=== PATIENT | male | born 1940 | race African-American/Black ===

== ENCOUNTER 2024-02-29 19:34 | Emergency (ER) | payer SELFPAY ==
[2024-02-29] VITALS (7 sets, daily range): BP systolic 138–159; BP diastolic 112–127; PULSE 106–118; RESP 17–39; O2SAT 93–100
--- NOTE | ~2024-02-29 | XR_ITS ---
EXAMINATION: XR chest 1V portable DATE: 02/29/2024 20:05 INDICATION: Shortness of breath. TECHNIQUE: A single frontal view of the chest was obtained on 2 radiographs. COMPARISON: None. FINDINGS: There is a diffuse interstitial pattern, consistent with mild pulmonary edema. No pleural e ffusion or pneumothorax. Cardiomegaly is noted. There is a prominent right pericardial fat pad. IMPRESSION: 1. Mild pulmonary edema. 2. Cardiomegaly. Reviewed, dictated and finalized at location E.
--- NOTE | ~2024-02-29 | CT_ITS ---
EXAMINATION: CTA chest PE protocol DATE: 02/29/2024 21:24 INDICATION: Shortness of breath. TECHNIQUE: Computed tomography angiography (CTA) of the chest was performed with 100 mL Omnipaque-350 intravenous contrast timed to evaluate the pulmonary arteries. Coronal maximum intensity projection 3D-reconstructions were created by the technologist. Automated exposure control and iterative reconst ruction technique were employed. The dose-length product was 242.10 mGy-cm. COMPARISON: Chest single view 02/29/2024 FINDINGS: There is mild emphysema. There is septal thickening in the lungs, consistent with mild pulm onary edema. There is mild atelectasis bilaterally. No pleural effusion. Cardiomegaly is noted. 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 There is no pulmonary embolus. There is mild thoraci c spondylosis. There is a chronic compression fracture of T4. IMPRESSION: 1. No pulmonary embolus. 2. Mild pulmonary edema. 3. Mild emphysema. 4. Cardiomegaly. Reviewed, dictated and finalized at location E.
--- NOTE | 2024-02-29 19:38 | ECG_ITS ---
Test Date: 2024-02-29 19:41:08 Measurements Intervals [place] Rate: 115 P: 0 GA: 0 QRS: -72 QRSD: 132 T: 104 QT: 360 QTc: 499 Interpretive Statements SINUS TACHYCARDIA ATRIAL AND VENTRICULAR PREMATURE COMPLEXES INTRAVENTRICULAR CONDUCTION DELAY DELAYED PRECORDIAL R/S TRANSITION LEFT VENTRICULAR HYPERTROPHY WITH ST-T CHANGE ABNORMAL ECG No previous ECG available for comparison Electronically Signed On 03-01-2024 07:10:13 CDT by Jae Dawson D.O.
--- NOTE | 2024-02-29 19:39 | ED.GENADULT ---
HPI - General Adult General Chief complaint: Shortness of Breath/Dyspnea Stated complaint: sob x 1-2 History of Present Illness HPI narrative: 83-year-old male present to the emergency department from home for evaluation of worsening shortness of breath. Patient has had worsening shortness breath over the last 2-3 days. Per EMS patient and daughter were poor historians. Patient is currently living with the daughter. Patient is post be wearing a LifeVest but patient is unaware of where this is at. Patient's primary complaint is shortness of breath. Patient had a stable pulse ox on arrival emergency department patient denies any complaints. Related Data Allergies Allergy/AdvReac Type Severity Reaction Status Date / Time No Known Allergies Allergy Verified 02/29/24 19:49 Review of Systems Review of Systems: All systems reviewed & are unremarkable except as noted in HPI and below Exam Narrative: APPEARANCE: Well appearing, no pain, no distress, well-nourished. HEAD: normocephalic, atraumatic. EYES: PERRLA/EOMI, conjunctivae clear. NOSE: Normal no drainage EARS:TMS clear with good light reflex. THROAT: Pharynx clear, no exudate. NECK: Supple. No adenopathy, no masses. RESPIRATORY: Airway patent, respirations nonlabored. Clear to auscultation bilaterally, no rales, rhonchi, wheezing. CARDIOVASCULAR: Regular rate and rhythm without murmurs rubs or gallops. ABDOMINAL: Soft, nontender, nondistended, normal bowel sounds MUSCULOSKELETAL: No lower extremity edema NEURO: Alert. Cranial nerves II through XII intact. Good gait. Good coordination SKIN: Warm, dry. Normal Color PSYCHIATRIC: Normal affect/mood. Course Course Emergency Course: Patient denies any shortness of breath and patient was improved with treatment. Vital Signs Vital signs: Vital Signs Pulse Rate 114 H 02/29/24 19:32 Respiratory Rate 37 H 02/29/24 19:32 Blood Pressure 159/120 H 02/29/24 19:32 Pulse Oximetry 95 02/29/24 19:32 Pulse Rate 109 H 02/29/24 22:27 Respiratory Rate 23 H 02/29/24 22:27 Blood Pressure 148/124 H 02/29/24 22:27 Pulse Oximetry 97 02/29/24 22:27 Oxygen Delivery Room Air 02/29/24 19:41 Medical Decision Making MDM Narrative Medical decision making narrative: 83-year-old male present to the emergency department for evaluation of shortness of breath. Patient states he does not feel short of breath at this time. Patient was able to ambulate in the emergency department with a stable pulse ox. Patient is afebrile with no leukocytosis and a stable hemoglobin of 11.9. Patient's D-dimer was elevated at 1.27 but CTA showed no evidence of pulmonary embolism. Patient's BNP was elevated the patient has no lower extremity edema and patient has no significant pulmonary edema. Patient was negative for influenza RSV and for COVID. Patient reports he does feel improved and patient denies any complaint at time of discharge. Patient was encouraged of close follow-up with his primary care physicians. Patient was treated with a dose of IV Lasix prior to discharge Differential Diagnosis Differential Diagnosis: Pneumonia, COPD, CHF Vital Signs Vital Signs: Vital Signs Pulse Rate 114 H 02/29/24 19:32 Respiratory Rate 37 H 02/29/24 19:32 Blood Pressure 159/120 H 02/29/24 19:32 Pulse Oximetry 95 02/29/24 19:32 Pulse Rate 109 H 02/29/24 22:27 Respiratory Rate 23 H 02/29/24 22:27 Blood Pressure 148/124 H 02/29/24 22:27 Pulse Oximetry 97 02/29/24 22:27 Oxygen Delivery Room Air 02/29/24 19:41 Lab Data 02/29/24 19:54 02/29/24 20:39 Labs: Lab Results 02/29/24 02/29/24 Range/Units 19:54 20:39 WBC 6.7 (4.5-10.0) K/mm3 RBC 4.16 L (4.6-6.20) M/mm3 Hgb 11.9 L (14.0-18.0) g/dL Hct 34.7 L (42.0-52.0) % MCV 83.4 (80-100) fl MCH 28.6 (26-34) pg MCHC 34.3 (32-36) g/dl RDW 19.9 H (11.5-14.5) % Plt Count 197 (150-375) k/m
[2024-02-29] MEDS: SODIUM CHLORIDE 0.9% IV 500 ML 999 ML IV CONT (19:49)
[2024-02-29 20:10] LABS: Basophils Absolute Auto 0.1 K/mm3 (0.0-0.1); Basophils Percent Auto 0.7 % (0.2-1.2); Eosinophils Absolute Auto 0.1 K/mm3 (0-0.3); Eosinophils Percent Auto 1.9 % (0-4.4); Hematocrit 34.7 % (42.0-52.0); Hemoglobin 11.9 g/dL (14.0-18.0); Immature Granulocyte Absolute 0.05 K/mm3 (0.00-0.031); Immature Granulocyte Percent A 0.7 % (0-0.5); Lymphocytes Absolute Auto 1.44 K/mm3 (0.9-3.2); Lymphocytes Percent Auto 21.5 % (18.3-44.2); Mean Corpuscular HGB Conc 34.3 g/dl (32-36); Mean Corpuscular Hemoglobin 28.6 pg (26-34); Mean Corpuscular Volume 83.4 fl (80-100); Mean Platelet Volume 10.9 fl (7.4-10.4); Monocytes Absolute Auto 0.5 K/mm3 (0.1-0.6); Neutrophils Absolute Auto 4.6 K/mm3 (1.3-6.7); Neutrophils Percent Auto 68.2 % (45.5-73.1); Nucleated Red Blood Cells Perc 0.3 % (0.0-0.2); Platelet Count Result 197 k/mm3 (150-375); Red Blood Count 4.16 M/mm3 (4.6-6.20); Red Cell Distribution Width 19.9 % (11.5-14.5); White Blood Count 6.7 K/mm3 (4.5-10.0)
[2024-02-29 20:20] LABS: D Dimer 1.27 ug/mL (<0.48)
[2024-02-29 20:54] LABS: Alanine Aminotransferase 18 U/L (6-50); Albumin Level 4.1 g/dL (3.5-5.1); Alkaline Phosphatase 78 U/L (38-126); Anion Gap 13 mmol/L (4-12); Aspartate Amino Transferase 23 U/L (17-59); Bilirubin,Total 0.8 mg/dL (0.2-1.3); Blood Urea Nitrogen 17 mg/dL (9-20); Calcium 8.9 mg/dL (8.4-10.2); Carbon Dioxide 17 mmol/L (22-30); Chloride 112 mmol/L (98-107); Estimated CRCL calculation 67 ml/min; Estimated Glomerular Filt Rate > 60; Glucose 115 mg/dL (65-110); Potassium 4.2 mmol/L (3.4-5.0); Sodium 142 mmol/L (137-145)
[2024-02-29 21:02] LABS: NT Pro B Type Natriuretic Pept 10400 pg/mL (19.9-100)
[2024-02-29 21:23] LABS: Influenza A QL RT-PCR Negative (Negative); Influenza B QL RT-PCR Negative (Negative); RSV RNA, RT-PCR Negative (Negative); SARS-CoV-2 RNA PCR Negative (Negative)
--- NOTE | 2024-02-29 21:51 | PC.NURSE ---
pt daughter called and stated that patient gets majority of his care at [facility]. family member states that he has stopped taking his daily medications and patient has not been wearing his life vest. pt has been staying with daughter but normally lives by himself. pt family member is unable to provide a list of medications that patient stopped taking.
[2024-02-29] MEDS: FUROSEMIDE INJ 40 MG/4 ML VIAL IV PUSH (22:26)
--- NOTE | 2024-02-29 23:03 | PC.NURSE ---
this rn spoke with and called patient daughter Ana who stated she would be on her way to come get patient.
--- NOTE | 2024-02-29 23:55 | PC.NURSE ---
this rn spoke with La, pt daughter to arrange transportation for patient to make it back home.
== END 2024-03-01 00:15 | disposition home or self-care (01) ==
PROVIDERS: Emergency Provider Emergency Medicine
DX: R06.02 Shortness of breath (principal); Z20.822 Contact with and (suspected) exposure to COVID-19; R00.0 Tachycardia, unspecified; I49.2 Junctional premature depolarization; I45.9 Conduction disorder, unspecified; I51.7 Cardiomegaly; J81.1 Chronic pulmonary edema; J43.9 Emphysema, unspecified
CPT/HCPCS: 36415; 71045; 71275; 80053; 83880; 85025; 85380; 87637; 93005; 96361; 96374; 99284; J1940; J7040; Q9967